=== PATIENT | male | born 1965 | race Caucasian/White ===

== ENCOUNTER 2017-08-21 13:26 | Emergency (ER) | payer OTHER ==
[2017-08-21] MEDS ORDERED: BABY ASPIRIN 81 MG CHEW PO ONE (13:58)
[2017-08-21] MEDS ORDERED: Sodium Chloride 0.9% 1000 ML 1,000 ML IV SCH (14:00)
[2017-08-21] MEDS ORDERED: Klor Con 10 MEQ PO ONE ×2 (14:01→14:29)
[2017-08-21 14:09] LABS: BASOPHIL % 0.2 % (0.0-0.4); Eosinophil % 1.3 % (0.00-5.0); Granulocytes % 71.7 % (36.0-66.0); Lymphocytes % 18.6 % (24.0-44.0); Mean Cell Volume 83.6 fl (78-100); Mean Platelet Volume 8.8 fl (6-9.5); Monocytes % 8.2 % (0.0-12.0); Platelet Count 235 K/mm3 (150-450); Red Blood Count 4.89 M/mm3 (4.1-5.6); Red Cell Distribution Width 14.1 % (11.5-14.0)
--- NOTE | 2017-08-21 14:11 | ERPHSYRPT ---
- History of Present Illness Time Seen by Provider: 08/21/17 13:50 Historian: patient Exam Limitations: clinical condition Patient Subjective Stated Complaint: pt here for pain pain to neck and chest since last nigth that moves around and is worse with deep breath, no cough or fever, pain eased sitting up. Triage Nursing Assessment: pt arrived per wc, alert, resp easy, labored with excertion, uses a cane to walk, skin w.d colostomy to left side of abd ,chest clear Physician History: PATIENT WITH A HISTORY OF TYPE 2 DIABETES, NECROTIZING FASCITIS COMPLAINS OF RIGHT SIDED NECK PAIN ASSOCIATED WITH MIGRATORY CHEST PAIN. DENIES DYSPNEA, DIAPHORESIS, PALPITATIONS, COUGH, FEVER OR RADIATION OF PAIN TO NECK, JAW OR ARMS. Timing/Duration: today Activities at Onset: none Quality: stabbing Location: other (GENERALIZED) Severity of Pain-Max: mild Severity of Pain-Current: mild Modifying Factors: Improves With: change in position Associated Symptoms: denies symptoms Prior Chest Pain/Cardiac Workup: no prior chest pain Nitro Today/Relief: no nitro taken today Aspirin Treatment Today: 81 mg x 4, provided by ED Allergies/Adverse Reactions: No Known Drug Allergies Allergy (Verified 08/21/17 13:45) Home Medications: Aspirin 81 mg PO DAILY 05/08/12 [History] Pravastatin Sodium [Pravachol 20 MG] 20 mg PO DAILY 07/30/12 [History] Empagliflozin [Jardiance] 10 mg DAILY 08/21/17 [History] Hx Tetanus, Diphtheria Vaccination/Date Given: No Hx Influenza Vaccination/Date Given: No Hx Pneumococcal Vaccination/Date Given: No Immunizations Up to Date: Yes - Review of Systems Constitutional: No Fever, No Chills Eyes: No Symptoms Ears, Nose, & Throat: No Symptoms Respiratory: No Symptoms, No Cough, No Dyspnea Cardiac: Chest Pain Abdominal/Gastrointestinal: No Symptoms, No Abdominal Pain, No Nausea, No Vomiting, No Diarrhea Genitourinary Symptoms: No Symptoms, No Dysuria Musculoskeletal: Neck Pain Neurological: No Symptoms Psychological: No Symptoms Endocrine: No Symptoms All Other Systems: Reviewed and Negative - Past Medical History Pertinent Past Medical History: Yes Neurological History: No Pertinent History ENT History: No Pertinent History Cardiac History: High Cholesterol, Hypertension Respiratory History: No Pertinent History Endocrine Medical History: Diabetes Type II Musculoskeletal History: Arthritis GI Medical History: Hernia History: No Pertinent History Psycho-Social History: No Pertinent History Male Reproductive Disorders: No Pertinent History Other Medical History: colostomy,open wound to buttom ,necrotitis fascitis - Past Surgical History Past Surgical History: No Neuro Surgical History: No Pertinent History Cardiac: No Pertinent History Respiratory: No Pertinent History Gastrointestinal: No Pertinent History Genitourinary: No Pertinent History Musculoskeletal: No Pertinent History Male Surgical History: No Pertinent History Other Surgical History: wound debridment ,colostomy - Social History Smoking Status: Former smoker How long have you smoked: 30 Exposure to second hand smoke: No Drug Use: none Patient Lives Alone: No - Nursing Vital Signs Nursing Vital Signs: Initial Vital Signs Temperature 97.2 F 08/21/17 13:31 Pulse Rate 87 08/21/17 13:31 Respiratory Rate 18 08/21/17 13:31 Blood Pressure 117/79 08/21/17 13:31 O2 Sat by Pulse Oximetry 94 L 08/21/17 13:31 Pain Scale Pain Intensity 4 - Physical Exam General Appearance: no apparent distress, alert Eye Exam: PERRL/EOMI, eyes nml inspection Ears, Nose, Throat Exam: normal ENT inspection, moist mucous membranes Neck Exam: normal inspection, non-tender, supple, full range of motion Respiratory Exam: normal breath sounds, chest tenderness, lungs clear, No respiratory distress Cardiovascular Exam: regular rate/rhythm, normal heart sounds Gastrointestinal/Abdomen Exam: soft, normal bowel sounds, other (OBESE NONTENDER , COLOSTOMY LLQ), No tenderness, No mass Back Exam: normal inspection, No CVA tenderness, No vertebral tenderness Extremity Exam: normal inspection, normal range of motion Neurologic Exam: alert, oriented x 3, cooperative, normal mood/affect, sensation nml, No motor deficits Skin Exam: normal color, warm, dry SpO2 Interpretation: normal SpO2: 94 Oxygen Delivery: Room Air - Course EKG Interpreted by Me: RATE, Sinus Rhythm, NORMAL AXIS, Non-specific ST Changes - Radiology Exams Chest X-ray Interpretation: Discussed w/ radiologist (STABLE NONACUTE CHEST WITH RIGHT MID LUNG SCARRING) Ordered Tests: Active Orders 24 hr Category Date Time Status Personal Finance Instructor STAT Care 08/21/17 14:00 Active EKG-ER Only STAT Care 08/21/17 13:58 Active IV Insertion STAT Care 08/21/17 13:58 Active Oxygen-ED Only NASAL CANNULA 2 lpm Care 08/21/17 13:58 Active CHEST 1 VIEW (PORTABLE) Stat Exams 08/21/17 13:59 Completed CBC W DIFF Stat Lab 08/21/17 13:45 Completed CMP Stat Lab 08/21/17 13:45 Completed D-DIMER QUANTITATION Stat Lab 08/21/17 13:45 Completed NT PRO BNP Stat Lab 08/21/17 13:45 Completed PROTIME WITH INR Stat Lab 08/21/17 13:45 Completed TROPONIN Q3H Lab 08/21/17 13:45 Completed TROPONIN Q3H Lab 08/21/17 17:00 Ordered TROPONIN Q3H Lab 08/21/17 20:00 Ordered TROPONIN Q3H Lab 08/21/17 23:00 Ordered TROPONIN Q3H Lab 08/22/17 02:00 Ordered Medication Summary Generic Name Dose Route Start Last Admin Trade Name Freq PRN Reason Stop Dose Admin Sodium Chloride 1,000 mls @ 50 mls/hr 08/21/17 14:00 08/21/17 14:31 Sodium Chloride 0.9% 1000 Ml IV 09/20/17 13:59 50 mls/hr .Q20H OSMANI Administration Discontinued Medications Generic Name Dose Route Start Last Admin Trade Name Freq PRN Reason Stop Dose Admin Aspirin 324 mg 08/21/17 13:58 08/21/17 14:32 Baby Aspirin 81 Mg Chew PO 08/21/17 13:59 324 mg STAT ONE Administration Aspirin Confirm 08/21/17 14:28 Baby Aspirin 81 Mg Chew Administered 08/21/17 14:29 Dose 324 mg .ROUTE .STK-MED ONE Potassium Chloride 40 meq 08/21/17 14:01 08/21/17 14:32 Klor Con 10 Meq PO 08/21/17 14:02 40 meq STAT ONE Administration Potassium Chloride Confirm 08/21/17 14:29 Klor Con 10 Meq Administered 08/21/17 14:30 Dose 40 meq PO .STK-MED ONE Tramadol HCl 50 mg 08/21/17 14:52 08/21/17 15:02 Ultram 50 Mg PO 08/21/17 14:53 50 mg STAT ONE Administration Tramadol HCl Confirm 08/21/17 15:01 Ultram 50 Mg Administered 08/21/17 15:02 Dose 50 mg .ROUTE .STK-MED ONE Lab/Rad Data: Laboratory Result Diagrams 08/21/17 13:45 08/21/17 13:45 Laboratory Results 08/21/17 08/21/17 08/21/17 Range/Units 13:45 13:45 13:45 WBC (4.0-10.5) K/mm3 RBC (4.1-5.6) M/mm3 Hgb (12.5-18.0) gm/dl Hct (42-50) % MCV (78-100) fl MCH (26-32) pg MCHC (32-36) g/dl RDW (11.5-14.0) % Plt Count (150-450) K/mm3 MPV (6-9.5) fl Gran % (36.0-66.0) % Lymphocytes % (24.0-44.0) % Monocytes % (0.0-12.0) % Eosinophils % (0.00-5.0) % Basophils % (0.0-0.4) % Basophils # (0-0.4) INR 1.14 (0.8-3.0) D-Dimer < 215 (0-500) ng/mL Sodium 137 (136-145) mEq/L Potassium 3.8 (3.5-5.1) mEq/L Chloride 101 (98-107) mEq/L Carbon Dioxide 26.1 (21-32) mEq/L Anion Gap 13.6 (5-15) MEQ/L BUN 17 (9-20) mg/dL Creatinine 0.98 (0.55-1.30) mg/dl Estimated GFR > 60 ML/MIN Glucose 166 H (70-110) MG/DL Calcium 9.1 (8.5-10.1) mg/dL Total Bilirubin 0.40 (0.2-1.0) mg/dL AST 13 L (15-37) U/L ALT 24 (12-78) U/L Alkaline Phosphatase 65 (46-116) U/L Troponin I < 0.017 (0.000-0.056) ng/ml NT-Pro-B Natriuret Pep 58 (0-125) pg/ml Serum Total Protein 8.1 (6.4-8.2) gm/dL Albumin 3.8 (3.4-5.0) g/dL 08/21/17 Range/Units 13:45 WBC 9.0 (4.0-10.5) K/mm3 RBC 4.89 (4.1-5.6) M/mm3 Hgb 13.7 (12.5-18.0) gm/dl Hct 40.9 L (42-50) % MCV 83.6 (78-100) fl MCH 28.0 (26-32) pg MCHC 33.5 (32-36) g/dl RDW 14.1 H (11.5-14.0) % Plt Count 235 (150-450) K/mm3 MPV 8.8 (6-9.5) fl Gran % 71.7 H (36.0-66.0) % Lymphocytes % 18.6 L (24.0-44.0) % Monocytes % 8.2 (0.0-12.0) % Eosinophils % 1.3 (0.00-5.0) % Basophils % 0.2 (0.0-0.4) % Basophils # 0.02 (0-0.4) INR (0.8-3.0) D-Dimer (0-500) ng/mL Sodium (136-145) mEq/L Potassium (3.5-5.1) mEq/L Chloride (98-107) mEq/L Carbon Dioxide (21-32) mEq/L Anion Gap (5-15) MEQ/L BUN (9-20) mg/dL Creatinine (0.55-1.30) mg/dl Estimated GFR ML/MIN Glucose (70-110) MG/DL Calcium (8.5-10.1) mg/dL Total Bilirubin (0.2-1.0) mg/dL AST (15-37) U/L ALT (12-78) U/L Alkaline Phosphatase (46-116) U/L Troponin I (0.000-0.056) ng/ml NT-Pro-B Natriuret Pep (0-125) pg/ml Serum Total Protein (6.4-8.2) gm/dL Albumin (3.4-5.0) g/dL - Departure Time of Disposition: 15:30 Departure Disposition: Home Clinical Impression: ACUTE CERVICAL MYALGIA, CHEST WALL PAIN Condition: Stable Critical Care Time: No Referrals: EDDIE FELICIANO MD [Primary Care Provider] - Additional Instructions: ULTRAM 50MG EVERY 4-6 HOURS NEEDED FOR PAIN DISCOMFORT. CONSULT YOUR PRIMARY CARE PHYSICIAN FOR FOLLOWUP IN 1 WEEK. RETURN TO EMERGENCY FOR INCREASING PAIN DISCOMFORT OR SHORTNESS OF BREATH.
--- NOTE | 2017-08-21 14:27 | XRAY ---
Indication: Chest and neck pain. Comparison: April 10, 2012. Portable chest remains clear. Heart and mediastinal structures within normal limits. Bony thorax intact again with mild degenerative changes. Impression: Stable nonacute chest.
[2017-08-21] MEDS ORDERED: BABY ASPIRIN 81 MG CHEW ONE (14:28)
[2017-08-21] MEDS ORDERED: Sodium Chloride 0.9% 1000 ML 1,000 ML ONE (14:29)
[2017-08-21 14:33] LABS: INR 1.14 (0.8-3.0); PROTIME 12.7 SECONDS (8.83-12.87)
[2017-08-21 14:36] LABS: ALBUMIN 3.8 g/dL (3.4-5.0); ALKALINE PHOSPHATASE 65 U/L (46-116); ANION GAP 13.6 MEQ/L (5-15); BLOOD UREA NITROGEN 17 mg/dL (9-20); CHLORIDE 101 mEq/L (98-107); Carbon Dioxide 26.1 mEq/L (21-32); Glucose 166 MG/DL (70-110); Potassium 3.8 mEq/L (3.5-5.1); SGOT/AST 13 U/L (15-37); SGPT/ALT 24 U/L (12-78); SODIUM 137 mEq/L (136-145); Total Protein 8.1 gm/dL (6.4-8.2)
[2017-08-21] MEDS ORDERED: ULTRAM 50 MG PO ONE (14:52)
[2017-08-21] MEDS ORDERED: ULTRAM 50 MG ONE (15:01)
[2017-08-21 15:35] VITALS: BP 127/67; PULSE 76; O2SAT 98
== END 2017-08-21 15:42 | disposition home or self-care (01) ==
LOC: ED 13:26
DX: M79.1 Myalgia (principal); R07.89 Other chest pain; E11.9 Type 2 diabetes mellitus without complications; M54.2 Cervicalgia; E78.00 Pure hypercholesterolemia, unspecified; I10 Essential (primary) hypertension
CPT/HCPCS: 36000; 36415; 71010; 80053; 83880; 84484; 85025; 85379; 85610; 93005; 93041; 96360; 99283; A9270-GY

== ENCOUNTER 2022-04-30 11:47 | Day surgery (SDC) | payer MEDICARE ==
[~2022-04-30 11:47] MED LIST: ACETAZOLAMIDE 250 MG TABLET PO ONE; Ak-Dilate OPHTHALMIC*** 1.065 ML, Cyclogyl 1% OPHTH SOL 1.065 ML, GATIFLOXACIN 0.5% OPH... OP ONE; BETADINE 5% OPHTHALMIC 30 ML OP ONE; DIPRIVAN 200 MG/20 ML IV ONE; Lactated Ringers 1,000 ML IV SCH; NON-FORMULARY ITEM OP ONE; TETRACAINE 0.5% STERI-UNIT SOL OP ONE; Versed 2 MG/2 ML Injection ONE; Zofran 4 MG/2 ML VIAL IV PRN; cefUROXime sodium 0.005 GM in Sodium Chloride Flush 30 ML*** 0.5 ML IJ ONE
[2022-04-30] MEDS ORDERED: DIPRIVAN 200 MG/20 ML IV ONE (11:48)
[2022-04-30] MEDS ORDERED: Lactated Ringers 1,000 ML IV ONE ×2 (12:08→12:29)
[2022-04-30 14:39] VITALS: BP 133/84; PULSE 78; O2SAT 97
[2022-04-30] MEDS ORDERED: LIDOCAINE HCL 1% 50 MG/5 ML VL PF IJ ONE (16:00)
[2022-04-30] MEDS ORDERED: Epinephrine Preservative Free 1 MG/ML INTRAOP ONE (16:00)
== END 2022-04-30 14:47 | disposition home or self-care (01) ==
LOC: SDC 11:47
PROVIDERS: ATTEND Ophthalmology
DX: H25.811 Combined forms of age-related cataract, right eye (principal); E11.9 Type 2 diabetes mellitus without complications
CPT/HCPCS: 82947; C1780; J0171; J2001; J2250; J2704; A9270-GY

== ENCOUNTER 2022-07-02 06:49 | Day surgery (SDC) | payer MEDICARE ==
[2022-07-02] MEDS ORDERED: TETRACAINE 0.5% STERI-UNIT SOL OP ONE ×2 (07:00)
[2022-07-02] MEDS ORDERED: Ak-Dilate OPHTHALMIC*** 1.065 ML, Cyclogyl 1% OPHTH SOL 1.065 ML, GATIFLOXACIN 0.5% OPH... OP ONE ×4 (07:00)
[2022-07-02] MEDS ORDERED: NON-FORMULARY ITEM OP ONE (07:00)
[2022-07-02] MEDS ORDERED: BETADINE 5% OPHTHALMIC 30 ML OP ONE (07:00)
[2022-07-02] MEDS ORDERED: Lactated Ringers 1,000 ML IV SCH (07:00)
[2022-07-02] MEDS ORDERED: cefUROXime sodium 0.005 GM in Sodium Chloride Flush 30 ML*** 0.5 ML IJ ONE (07:00)
[2022-07-02] MEDS ORDERED: Lactated Ringers 1,000 ML IV ONE (07:11)
[2022-07-02 07:49] LABS: INR 1.07 (0.8-3.0); PROTIME 11.3 SECONDS (9.4-12.5)
[2022-07-02] MEDS ORDERED: DIPRIVAN 200 MG/20 ML IV ONE ×2 (08:52→09:57)
[2022-07-02 10:20] VITALS: O2SAT 93
[2022-07-02 10:29] VITALS: BP 108/56; PULSE 81
[2022-07-02] MEDS ORDERED: ACETAZOLAMIDE 250 MG TABLET PO ONE (11:00)
[2022-07-02] MEDS ORDERED: Zofran 4 MG/2 ML VIAL IV PRN (11:00)
[2022-07-02] MEDS ORDERED: Visionblue IO ONE (14:43)
[2022-07-02] MEDS ORDERED: LIDOCAINE HCL 1% 50 MG/5 ML VL PF IJ ONE ×2 (14:53→15:00)
[2022-07-02] MEDS ORDERED: Epinephrine Preservative Free 1 MG/ML IJ ONE (14:53)
[2022-07-02] MEDS ORDERED: Epinephrine Preservative Free 1 MG/ML INTRAOP ONE (15:00)
== END 2022-07-02 10:35 | disposition home or self-care (01) ==
LOC: SDC 06:49
PROVIDERS: ATTEND Ophthalmology
DX: H25.812 Combined forms of age-related cataract, left eye (principal); E11.9 Type 2 diabetes mellitus without complications; Z79.01 Long term (current) use of anticoagulants
CPT/HCPCS: 36415; 66982; 82947; 85610; C1780; J0171; J2001; J2704; A9270-GY

== ENCOUNTER 2022-12-11 10:44 | Emergency (ER) | payer MEDICARE ==
[2022-12-11 11:39] VITALS: BP 142/69; PULSE 95; O2SAT 96
[2022-12-11 11:56] LABS: Absolute Neutrophil Ct (ANC) 4.87 x10^3/uL (1.4-6.9); BASOPHIL % 0.3 % (0.0-0.4); Basophil (Absolute #) 0.02 x10^3/uL (0-0.4); Eosinophil % 2.1 % (0.00-5.0); Eosinophil (Absolute #) 0.15 x10^3/uL (0-0.5); Hemoglobin 14.3 g/dL (12.5-18.0); IMMATURE GRAN # 0.06 x10^3u/L (0.00-0.03); IMMATURE GRAN % 0.8 % (0.00-0.4); Lymphocyte (Absolute #) 1.51 x10^3/uL (1.0-4.6); Lymphocytes % 21.1 % (24.0-44.0); Mean Cell Volume 81.1 fL (78-100); Mean Corpuscular Hgb Concent. 33.3 g/dL (32-36); Mean Platelet Volume 8.4 fL (7.5-11.0); Monocyte (Absolute #) 0.54 x10^3/uL (0.0-1.3); Monocytes % 7.6 % (0.0-12.0); Neutrophil % 68.1 % (36.0-66.0); Platelet Count 195 x10^3/uL (150-450); Red Cell Distribution Width 13.6 % (11.5-14.0); White Blood Count 7.2 x10^3/uL (4.0-10.5)
[2022-12-11 12:14] LABS: ALBUMIN 4.2 g/dL (3.5-5.0); ALKALINE PHOSPHATASE 65 U/L (38-126); ANION GAP 14.4 MEQ/L (5-15); BLOOD UREA NITROGEN 22 mg/dL (9-20); CHLORIDE 104 mmol/L (98-107); Calcium 8.7 mg/dL (8.4-10.2); Carbon Dioxide 23 mmol/L (22-30); Creatinine 1 0.64 mg/dL (0.66-1.25); EST GLOMERULAR FILTRATION RATE > 60.0 ML/MIN; Glucose 176 mg/dL (74-106); Potassium 4.3 mmol/L (3.5-5.1); SGOT/AST 23 U/L (17-59); SGPT/ALT 29 U/L (0-50); SODIUM 137 mmol/L (137-145); Total Protein 7.6 g/dL (6.3-8.2)
--- NOTE | 2022-12-11 12:23 | ERPHSYRPT ---
- History of Present Illness Time Seen by Provider: 12/11/22 11:25 Source: patient Exam Limitations: no limitations Patient Subjective Stated Complaint: Skin Triage Nursing Assessment: Patient ambulated back to ED with cane. Patient A+O X 3. Patient's skin pink, warm and dry. Patient states he is having pain behind right knee where he had previous wound. No open area noted. Patient also complains of galding underneath right breast. Patient complains of pain to right leg /10. Physician History: Patient is here with 3 areas of concern. Patient has a yeast infection under his right breast. This is new. Patient has a chronic wound on his buttocks area. Patient has pain behind his right knee. He is concerned about all 3 areas of these for infection. Patient had a history of necrotizing fasciitis. He has diabetes. Therefore, they are concerned that this could be reoccurring. They would like him evaluated. Patient has no tachycardia, fever, signs of sepsis or systemic signs of illness on initial history today. No drainage from the area. Patient's sugars have been under control at home. Severity: mild Allergies/Adverse Reactions: No Known Drug Allergies Allergy (Verified 12/11/22 11:21) Home Medications: Aspirin 81 mg PO DAILY 05/08/12 [History] Empagliflozin [Jardiance] 25 mg PO DAILY 04/29/22 [History] Semaglutide [Ozempic] 4 mg SQ WEEKLY 04/29/22 [History] Simvastatin 20Mg [Zocor 20Mg] 20 mg PO DAILY 04/29/22 [History] Hx Tetanus, Diphtheria Vaccination/Date Given: No Hx Influenza Vaccination/Date Given: No Hx Pneumococcal Vaccination/Date Given: No Immunizations Up to Date: Yes Travel Risk - International Travel Have you traveled outside of the country in past 3 weeks: No - Coronavirus Screening Are you exhibiting any of the following symptoms?: No Close contact with a COVID-19 positive Pt in past 14-21 Days: No - Vaccine Status Have you recieved a Covid-19 vaccination: No - Review of Systems Constitutional: No Fever, No Chills Eyes: No Symptoms Ears, Nose, & Throat: No Symptoms Respiratory: No Cough, No Dyspnea Cardiac: No Chest Pain, No Edema, No Syncope Abdominal/Gastrointestinal: No Abdominal Pain, No Nausea, No Vomiting, No Diarrhea Genitourinary Symptoms: No Dysuria Musculoskeletal: No Back Pain, No Neck Pain Skin: Other (Area of concern for cellulitis), No Rash Neurological: No Dizziness, No Focal Weakness, No Sensory Changes Psychological: No Symptoms Endocrine: No Symptoms All Other Systems: Reviewed and Negative - Past Medical History Pertinent Past Medical History: Yes Neurological History: No Pertinent History ENT History: No Pertinent History Cardiac History: High Cholesterol, Hypertension Respiratory History: No Pertinent History Endocrine Medical History: Diabetes Type II Musculoskeletal History: Arthritis GI Medical History: Hernia History: No Pertinent History Psycho-Social History: No Pertinent History Male Reproductive Disorders: No Pertinent History Other Medical History: colostomy,open wound to buttom ,necrotitis fascitis - Past Surgical History Past Surgical History: No Neuro Surgical History: No Pertinent History Cardiac: No Pertinent History Respiratory: No Pertinent History Gastrointestinal: Bowel Surgery Genitourinary: No Pertinent History Musculoskeletal: No Pertinent History Male Surgical History: No Pertinent History Other Surgical History: wound debridment ,colostomy, hernia surgery, 9x surgery on right leg - Social History Smoking Status: Former smoker How long have you smoked: 30 Exposure to second hand smoke: No Drug Use: none Patient Lives Alone: No - Nursing Vital Signs Nursing Vital Signs: Initial Vital Signs Temperature 98.1 F 12/11/22 11:23 Pulse Rate 95 H 12/11/22 11:23 Respiratory Rate 18 12/11/22 11:23 Blood Pressure 142/69 12/11/22 11:23 O2 Sat by Pulse Oximetry 96 12/11/22 11:23 Pain Scale Pain Intensity 7 - Physical Exam General Appearance: no apparent distress, alert Eye Exam: PERRL/EOMI, eyes nml inspection Ears, Nose, Throat Exam: normal ENT inspection, TMs normal, pharynx normal, moist mucous membranes Neck Exam: normal inspection, non-tender, supple, full range of motion Respiratory Exam: normal breath sounds, lungs clear, No respiratory distress Cardiovascular Exam: regular rate/rhythm, normal heart sounds, normal peripheral pulses Gastrointestinal/Abdomen Exam: soft, normal bowel sounds, No tenderness, No mass Back Exam: normal inspection, normal range of motion, No CVA tenderness, No vertebral tenderness Extremity Exam: normal inspection, normal range of motion, pelvis stable Neurologic Exam: alert, oriented x 3, cooperative, normal mood/affect, nml cerebellar function, nml station & gait, sensation nml, No motor deficits Skin Exam: normal color, warm, dry, No rash Lymphatic Exam: No adenopathy SpO2 Interpretation: normal SpO2: 96 Comments: 12/11/22 14:29 Skin exam: Under right breast patient has early yeast infection. No signs of secondary hever lulitis. Behind right knee patient has 2+ pulses. There is a slight abrasion without surrounding cellulitis or other infection. No other tenderness, redness. Full range of motion. Patient has chronic decubitus wound on my exam. Appears well-healing, no surrounding signs of infection. - Course Nursing assessment & vital signs reviewed: Yes Ordered Tests: Active Orders 24 hr Category Date Time Status CBC W DIFF Stat Lab 12/11/22 11:57 Completed CMP Stat Lab 12/11/22 11:57 Completed POCT GLUCOSE Stat Lab 12/11/22 11:34 Completed Lab/Rad Data: Laboratory Result Diagrams 12/11/22 11:57 12/11/22 11:57 Laboratory Results 12/11/22 12/11/22 12/11/22 Range/Units 11:57 11:57 11:34 WBC 7.2 (4.0-10.5) x10^3/uL RBC 5.30 (4.1-5.6) x10^6/uL Hgb 14.3 (12.5-18.0) g/dL Hct 43.0 (42-50) % MCV 81.1 (78-100) fL MCH 27.0 (26-32) pg MCHC 33.3 (32-36) g/dL RDW 13.6 (11.5-14.0) % Plt Count 195 (150-450) x10^3/uL MPV 8.4 (7.5-11.0) fL Gran % 68.1 H (36.0-66.0) % Immature Gran % (Auto) 0.8 H (0.00-0.4) % Nucleat RBC Rel Count 0.0 (0.00-0.1) % Eos # (Auto) 0.15 (0-0.5) x10^3/uL Immature Gran # (Auto) 0.06 H (0.00-0.03) x10^3u/L Absolute Lymphs (auto) 1.51 (1.0-4.6) x10^3/uL Absolute Monos (auto) 0.54 (0.0-1.3) x10^3/uL Absolute Nucleated RBC 0.00 (0.00-0.01) x10^3u/L Lymphocytes % 21.1 L (24.0-44.0) % Monocytes % 7.6 (0.0-12.0) % Eosinophils % 2.1 (0.00-5.0) % Basophils % 0.3 (0.0-0.4) % Absolute Granulocytes 4.87 (1.4-6.9) x10^3/uL Basophils # 0.02 (0-0.4) x10^3/uL Sodium 137 (137-145) mmol/L Potassium 4.3 (3.5-5.1) mmol/L Chloride 104 (98-107) mmol/L Carbon Dioxide 23 (22-30) mmol/L Anion Gap 14.4 (5-15) MEQ/L BUN 22 H (9-20) mg/dL Creatinine 0.64 L (0.66-1.25) mg/dL Estimated GFR > 60.0 ML/MIN Glucose 176 H (74-106) mg/dL POC Glucometer 178 H (74 to 106) mg/dL Calcium 8.7 (8.4-10.2) mg/dL Total Bilirubin 0.40 (0.2-1.3) mg/dL AST 23 (17-59) U/L ALT 29 (0-50) U/L Alkaline Phosphatase 65 (38-126) U/L Serum Total Protein 7.6 (6.3-8.2) g/dL Albumin 4.2 (3.5-5.0) g/dL - Progress Progress: improved Progress Note: 12/11/22 14:30 Patient has an area of concern for yeast. However see no obvious cellulitis today. Basic labs are normal. Patient has no elevation of his white blood cell count, not in DKA. No other fever, falls, trauma. No systemic signs of illn ess. We will treat patient's yeast infection with nystatin today. Out of an abundance of caution I will start patient on a short course of clindamycin. I have low suspicion for cellulitis. Blood sugar is normal. Plan for close follow-up with PCP. Patient may return here sooner for new or changing symptoms. Counseled pt/family regarding: lab results, diagnosis - Departure Departure Disposition: Extended Care Facility Clinical Impression: Yeast infection of the skin, Cellulitis Condition: Stable Critical Care Time: No Referrals: EDDIE FELICIANO MD [Primary Care Provider] - Follow up/PCP as directed Instructions: Skin Rash (DC) Prescriptions: clindamycin HCL [Clindamycin HCl] 300 mg PO TID 7 Days #21 cap Nystatin Powder 15 gm [Nystop Powder 15 gm] 10 gm TP BID 14 Days #120
== END 2022-12-11 12:45 | disposition home or self-care (01) ==
LOC: ED 10:44
DX: B37.2 Candidiasis of skin and nail (principal); L03.90 Cellulitis, unspecified; M25.561 Pain in right knee; E11.9 Type 2 diabetes mellitus without complications; E78.5 Hyperlipidemia, unspecified; I10 Essential (primary) hypertension; Z79.84 Long term (current) use of oral hypoglycemic drugs; Z79.85 Long-term (current) use of injectable non-insulin antidiabetic drugs; Z79.899 Other long term (current) drug therapy; Z28.310 Unvaccinated for COVID-19
CPT/HCPCS: 36415; 80053; 82947; 85025; 99282